=== PATIENT | male | born 1940 | race American Indian/Alaskan Native ===

== ENCOUNTER 2016-07-15 15:17 | Outpatient (CLI) | payer MEDICARE ==
--- NOTE | 2016-07-15 16:28 | XRay Report ---
CHEST TWO VIEWS: 07/15/16 15:17:00 CLINICAL: Shortness of breath and dyspnea. COMPARISON: None FINDINGS: The heart is greatly enlarged. Central vascular congestion with indistinct of the pulmonary vessels. Widening of the right pleural space and opacification of the right costophrenic angle. 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 IMPRESSION: CHF with mild interstitial pulmonary edema and a right pleural effusion. Possible smaller left pleural effusion.
== END 2016-07-15 15:18 | disposition home or self-care (01) ==
LOC: XRAY 15:17
PROVIDERS: ATTEND Internal Medicine
DX: I50.1 Left ventricular failure, unspecified (principal); I51.7 Cardiomegaly; J90 Pleural effusion, not elsewhere classified; M13.812 Other specified arthritis, left shoulder
CPT/HCPCS: 71020